=== PATIENT | male | born 1970 | race Caucasian/White ===

== ENCOUNTER 2016-12-17 21:12 | Emergency (ER) | payer OTHER ==
[~2016-12-17] VITALS: Ht 180.3 cm; Wt 84.5 kg
[2016-12-17] MEDS ORDERED: IBUP-1114 PO (21:26)
[2016-12-17] MEDS ORDERED: PRED1SUS OS (21:26)
[2016-12-17] MEDS: MORPHINE 4 MG/ML 1ML SYRINGE IV PRN (21:59)
[2016-12-17] MEDS ORDERED: ONDANSETRON 4MG/2ML VIAL (J2405) IV ONE (22:00)
[2016-12-17 23:28] LABS: BASO % 0.2 % (0.0-1.0); EOS # 0.1 K/mm3 (0.0-0.50); EOS % 0.9 % (0.0-3.0); LARGE UNSTAINED CELL # 0.1 K/mm3 (0.0-0.4); LARGE UNSTAINED CELL % 0.7 % (0.0-4.0); LYMPH # 1.2 K/mm3 (1.5-4.5); LYMPH % 7.1 % (24.0-44.0); MEAN CORPUSCULAR HEMOGLOBIN 31.6 pg (27.0-33.0); MEAN CORPUSCULAR HGB CONC 33.6 g/dl (32.0-36.5); MEAN CORPUSCULAR VOLUME 94.2 fl (80.0-96.0); MONO # 0.6 K/mm3 (0.0-0.8); NEUTROPHILS # 13.4 K/mm3 (1.8-7.7); NEUTROPHILS % 87.2 % (36.0-66.0); PLATELET COUNT, AUTOMATED 308 k/mm3 (150-450); RED CELL DISTRIBUTION WIDTH 12.6 % (11.5-14.5); WHITE BLOOD COUNT 15.4 K/mm3 (4.0-10.0)
[2016-12-17] MEDS ORDERED: TETANUS/DIPHTHERIA TOX ADSORB ADULT 0.5ML SYR/VIAL (90714) IM ONE (23:30)
[2016-12-17] MEDS: NS 1,000 ML IV SCH ×2 (23:30→23:31)
[2016-12-17 23:48] LABS: ANION GAP 6 MEQ/L (8-16); BLOOD UREA NITROGEN 11 MG/DL (7-18); CALCIUM LEVEL 8.5 MG/DL (8.5-10.1); CARBON DIOXIDE LEVEL 27 MEQ/L (21-32); CHLORIDE LEVEL 105 MEQ/L (98-107); CREATININE FOR GFR 1.01 MG/DL (0.70-1.30); GLOMERULAR FILTRATION RATE > 60.0 (>60); GLUCOSE, FASTING 80 MG/DL (70-105); POTASSIUM SERUM 3.8 MEQ/L (3.5-5.1); SODIUM LEVEL 138 MEQ/L (136-145)
[2016-12-18] MEDS: MORPHINE 4 MG/ML 1ML SYRINGE IV PRN (00:41)
[2016-12-18 01:29] VITALS: BP 121/65
--- NOTE | 2016-12-18 08:45 | REP ---
Bilateral foot series: 11 views including axial calcaneal views. History: Trauma. Findings: Six views of the left foot demonstrate a comminuted depressed calcaneal fracture. There is flattening of Bohler's angle with significant comminution. No other fracture is seen. Impression: Comminuted depressed fracture of the left calcaneus. Right ankle: Five views of the right ankle show soft tissue swelling at the medial aspect of the midfoot and a slightly comminuted fracture of the medial aspect of the tarsal navicular bone. No calcaneal fracture is seen. There is extensive plantar calcaneal spurring noted on the right with some Achilles calcaneal spurring. The spurring is fragmented but these do not appear to be acute fractures. Impression: Acute fracture of the medial aspect of the navicular bone in the right midfoot. Heel spurring. Signed by Brian Tenorio MD 12/18/2016 09:55 A
--- NOTE | 2016-12-18 08:47 | REP ---
Bilateral ankle series: Five views presented. There is no lateral right ankle view included. A lateral view was included in the bilateral foot series. Findings: A comminuted depressed fracture of the left calcaneus is again noted. 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 No other left-sided fracture is apparent. Associated swelling is seen. Ankle mortise is intact. On the right, there is extensive calcaneal spurring noted as on the foot views. No ankle fracture is seen. The known right tarsal navicular fracture is not visualized. Impression: Findings as seen on foot views. No additional ankle fracture seen. Signed by Brian Tenorio MD 12/18/2016 09:55 A
== END 2016-12-18 01:32 | disposition short-term general hospital (02) ==
LOC: M ED 22:28
DX: S92.055A Nondisplaced other extraarticular fracture of left calcaneus, initial encounter for closed fracture (principal); S92.254A Nondisplaced fracture of navicular [scaphoid] of right foot, initial encounter for closed fracture; M77.31 Calcaneal spur, right foot; W17.89XA Other fall from one level to another, initial encounter; Y92.89 Other specified places as the place of occurrence of the external cause; Y93.89 Activity, other specified; Y99.0 Civilian activity done for income or pay
CPT/HCPCS: 36415; 73610; 73630; 80048; 85025; 90471; 90714; 96374; 96375; 96376; 99284; J2405